=== PATIENT | female | born 2000 | race African-American/Black ===

== ENCOUNTER → 2019-10-29 | Outpatient (REF) | payer OTHER ==
[2019-10-29 21:21] LABS: URINE PREG TEST NEGATIVE (NEGATIVE)
== END ==
LOC: M LAB 21:14
PROVIDERS: ATTEND Physician Assistant
DX: R30.0 Dysuria (principal)

== ENCOUNTER 2019-11-02 05:28 | Emergency (ER) | payer OTHER ==
[~2019-11-02] VITALS: Ht 165.1 cm; Wt 77.3 kg
[2019-11-02] MEDS ORDERED: FLUC150T (05:36)
[2019-11-02] MEDS ORDERED: NITR100C2 (05:36)
[2019-11-02] MEDS ORDERED: METR-265 (05:36)
--- NOTE | 2019-11-02 07:42 | REP ---
Clinical: Dyspnea and history of asthma . Comparison: None . Technique: PA and lateral. Findings: The mediastinum and cardiac silhouette are normal. The lung fernandez are clear and without acute consolidation, effusion, or pneumothorax. The skeletal structures are intact and normal. Impression: 1. No acute cardiopulmonary process. Electronically Signed by Jeison Melchor MD 11/02/2019 07:33 A
[2019-11-02] MEDS ORDERED: PROAAER10 INH (08:17)
[2019-11-02] MEDS ORDERED: AMOX875T PO (08:17)
[2019-11-02 08:41] VITALS: BP 126/84
== END 2019-11-02 08:42 | disposition home or self-care (01) ==
LOC: M ED 05:28
DX: J02.0 Streptococcal pharyngitis (principal); J45.909 Unspecified asthma, uncomplicated

== ENCOUNTER → 2019-11-20 | Outpatient (REF) | payer OTHER ==
[~2019-11-20] MED LIST: AMOX875T PO; FLUC150T; METR-265; NITR100C2; PROAAER10 INH
== END ==
LOC: M LAB REF 12:19
PROVIDERS: ATTEND Physician Assistant
DX: R30.0 Dysuria (principal)

== ENCOUNTER 2019-12-13 04:17 | Emergency (ER) | payer OTHER ==
[~2019-12-13] VITALS: Ht 162.6 cm; Wt 78.6 kg
[2019-12-13] MEDS ORDERED: FAMOTIDINE IV BAG 20 MG in IV 1 EA IV ONE (04:45)
[2019-12-13] MEDS ORDERED: diphenhydrAMINE 50MG/ML VIAL (J1200) IV ONE (04:45)
[2019-12-13] MEDS ORDERED: methylPREDNISolone INJ 125 MG/2 ML VIAL (J2930) IV ONE (04:45)
[2019-12-13] MEDS ORDERED: PRED20TA PO (05:54)
[2019-12-13 06:13] VITALS: BP 138/76
== END 2019-12-13 06:15 | disposition home or self-care (01) ==
LOC: M ED 04:17
DX: R22.1 Localized swelling, mass and lump, neck (principal); T78.1XXA Other adverse food reactions, not elsewhere classified, initial encounter; X58.XXXA Exposure to other specified factors, initial encounter; Y92.89 Other specified places as the place of occurrence of the external cause
CPT/HCPCS: 96365; 96375; 99291; J1200; J2930

== ENCOUNTER → 2020-03-12 | Emergency (ER) | payer OTHER ==
[~2020-03-12] MED LIST changes: +PRED20TA PO
== END | disposition left against medical advice (07) ==
LOC: M ED 22:28
DX: Z53.21 Procedure and treatment not carried out due to patient leaving prior to being seen by health care provider (principal)